=== PATIENT | female | born 1985 | race Caucasian/White ===

== ENCOUNTER 2017-02-18 10:21 | Day surgery (SDC) | payer OTHER ==
[~2017-02-18] VITALS: Ht 157.5 cm; Wt 63.0 kg
[2017-02-18] MEDS ORDERED: LIDOCAINE 1%, 2ML ONE (10:58)
[2017-02-18] MEDS ORDERED: MIDAZOLAM 1 MG/ML, 2ML ONE (11:07)
[2017-02-18] MEDS ORDERED: FENTANYL PF 250 MCG/5ML ONE (11:07)
[2017-02-18 11:10] LABS: HCG UR OBC PASS
[2017-02-18 11:15] VITALS: BP 126/84
[2017-02-18] MEDS ORDERED: no home meds (11:21)
[2017-02-18 12:16] LABS: HEMATOCRIT 42.7 % (34.6-47.8); HEMOGLOBIN 14.1 g/dL (11.7-16.4); WHITE BLOOD COUNT 6.6 x10^3/uL (3.4-10)
[2017-02-18] MEDS ORDERED: SILVER NITRATE STICK TP ONE (13:04)
[2017-02-18] MEDS ORDERED: BUPIVACAINE/PF 0.25% ONE (13:04)
[2017-02-18] MEDS ORDERED: BUPIVACAINE/PF-EPI 0.5% 1:200K ONE (13:04)
[2017-02-18] MEDS ORDERED: KETOROLAC 30 MG/1 ML ONE (13:16)
[2017-02-18] MEDS ORDERED: ROCURONIUM 10 MG/ML ONE (13:16)
[2017-02-18] MEDS ORDERED: SUCCINYLCHOLINE 20 MG/ML, 10ML ONE (13:16)
[2017-02-18] MEDS ORDERED: PROPOFOL 10 MG/ML, 20ML ONE (13:16)
[2017-02-18] MEDS ORDERED: DEXAMETHASONE 4 MG/ML, 1ML ONE (13:16)
[2017-02-18] MEDS ORDERED: CEFAZOLIN 1,000 MG ONE (13:16)
[2017-02-18] MEDS ORDERED: ONDANSETRON 2MG/ML, 2ML ONE (13:16)
[2017-02-18] MEDS ORDERED: hydrALAzine 20 MG/ML, 1ML IV PRN (13:30)
[2017-02-18] MEDS ORDERED: METOCLOPRAMIDE 5 MG/ML, 2ML IV PRN (13:30)
[2017-02-18] MEDS ORDERED: LABETALOL 5MG/ML, 20ML IV PRN (13:30)
[2017-02-18] MEDS ORDERED: HYDROmorphone 1 MG/ML, 1ML IV PRN (13:30)
[2017-02-18] MEDS ORDERED: ACETAMINOPHEN 325 MG TABLET PO PRN (13:30)
[2017-02-18] MEDS ORDERED: ONDANSETRON 2MG/ML, 2ML IVPush PRN (13:30)
[2017-02-18] MEDS ORDERED: OXYcodone 5 MG/5 ML ORAL.SOL UDC PO PRN (13:30)
[2017-02-18] MEDS ORDERED: ACETAMINOPHEN 650 MG/20.3 ML UDC ONE (14:59)
[2017-02-18] MEDS ORDERED: OXYcodone 5 MG/5 ML ORAL.SOL UDC ONE (15:00)
[2017-02-18] MEDS ORDERED: FENTANYL PF 100 MCG/2ML ONE (15:00)
[2017-02-18] MEDS: FENTANYL PF 100 MCG/2ML IV PRN ×2 (15:01→15:13)
== END 2017-02-18 16:45 ==
LOC: OUT 10:21
PROVIDERS: ATTEND Obstetrics & Gynecology
DX: D27.1 Benign neoplasm of left ovary (principal); D27.0 Benign neoplasm of right ovary; D28.2 Benign neoplasm of uterine tubes and ligaments
CPT/HCPCS: 36415; 58700; 81025; 85025; 88112; 88307; J0330; J0690; J1100; J1885; J2250; J2405; J2704; J3010; J3490